=== PATIENT | female | born 1935 | race Caucasian/White ===

== ENCOUNTER 2016-09-19 00:12 | Emergency (ER) | payer OTHER, MEDICARE ==
[2016-09-19 01:03] LABS: ABSOLUTE BASOPHIL COUNT 0.1 /CUMM (0.0-0.2); ABSOLUTE EOSINOPHIL COUNT 0.2 /CUMM (0.0-0.7); ABSOLUTE GRANULOCYTE CT 6.7 /CUMM (1.4-6.5); ABSOLUTE MONOCYTE COUNT 0.8 /CUMM (0.10-0.60); BASOPHIL % 0.8 % (0.0-2.0); EOSINOPHIL % 1.6 % (0-5); GRANULOCYTE % 68.9 % (42.2-75.2); HEMATOCRIT 40.5 % (37-47); MEAN CORPUSCULAR HGB 30.4 PG (27.0-31.0); MEAN CORPUSCULAR HGB CONC 32.9 G/DL (33.0-37.0); MEAN CORPUSCULAR VOLUME 92.4 FL (81.0-99.0); PLATELET COUNT 209 /CUMM (130-400); RBC DISTRIBUTION WIDTH 14.4 % (11.5-14.5); RED BLOOD CELL CT 4.38 /CUMM (4.20-5.40); WHITE BLOOD CELL COUNT 9.8 /CUMM (4.8-10.8)
[2016-09-19 01:08] LABS: PT 13.7 SEC (9.4-12.5)
--- NOTE | 2016-09-19 01:45 | ED NEURO DEFICIT/STROKE ---
History of Present Illness General Chief Complaint: Neuro Symptoms/ Deficit Stated Complaint: BIBA L SIDE WEAKNESS Source: patient, old records, EMS Exam Limitations: no limitations Vital Signs & Intake/Output Vital Signs & Intake/Output Vital Signs Date Time Temp Pulse Resp B/P Pulse O2 O2 Flow FiO2 Ox Delivery Rate 09/19 0706 98.0 80 18 157/72 94 Room Air 09/19 0241 98.3 82 20 181/82 94 Room Air 09/19 0025 94 Room Air 09/19 0022 97.8 81 18 164/104 94 Room Air Reconcile Medications Atorvastatin Calcium 10 MG TABLET 1 TAB PO DAILY HIGH CHOLESTEROL (Reported) Mirtazapine 30 MG TABLET 1 TAB PO QPM (Reported) Quetiapine Fumarate 25 MG TABLET 1 TAB PO QPM (Reported) Venlafaxine HCl 75 MG TABLET 1 TAB PO BID (Reported) Core Measure Meds Pre-Hospital xarelto Triage Note: TRIAGE: PATIENT ERICK FROM HOME REPORTS SUDDEN ONSET L ARM/LEG WEAKNESS W/ L FACIAL DROOP AND SLURRED SPEECH X 20 MINUTES JUST [employer], WAS STANDING AND "ROLLED ONTO A BENCH WHEN IT HAPPENED." DENIES HEADSTRIKE/ INJURIES, IS TAKING XARELTO. PER EMS, PATIENT SYMPTOMS RESOLVED ENTIRELY WITNESSED BY EMS. NEUROS INTACT, SPEECH CLEAR. PATIENT DENIES HX OF SAME. PREHOSP IV EST #18 RIGHT HAND, DRESSING CHANGED. PLACED ON NUTRITIONAL SERVICES COOK, NSR. MD BAH TO BEDSIDE. Triage Nurses Notes Reviewed? yes Onset: Just prior to arrival Duration: minute(s):, better, gone now Timing: recent history Severity: moderate New Weakness: LUE, LLE, left facial Altered Sensations: LUE, LLE, left facial Vision Problem? No Glaucoma? No Impaired Ability: difficult to stand, weak Baseline: alert, oriented x 3 Associated Symptoms: trouble walking, weakness LMP (ages 10-50): post menopausal : No Patient currently breastfeeds: No HPI: Shortly prior to admission patient was unable to pin on her medals and noted left facial numbness left arm and leg weakness and fell onto the floor from a seated position striking the left side of her head. The symptoms lasted less than 20 minutes and resolved completely. She denies fever chills nausea vomiting diarrhea abdominal pain chest pain shortness of breath headache dysuria rash bleeding. Past History Travel History Traveled to [place] past 21 day No Medical History Any Pertinent Medical History? 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 No Review of Systems Review of Systems Constitutional: Reports: no symptoms. EENTM: Reports: no symptoms. Respiratory: Reports: no symptoms. Cardiovascular: Reports: no symptoms. GI: Reports: no symptoms. Genitourinary: Reports: no symptoms. Musculoskeletal: Reports: no symptoms. Skin: Reports: no symptoms. Neurological/Psychological: Reports: see HPI, numbness, unable to move lower ext, unable to move upper ext, weakness. Hematologic/Endocrine: Reports: no symptoms. Immunologic/Allergic: Reports: no symptoms. All Other Systems: Reviewed and Negative Physical Exam Physical Exam General Appearance: well developed/nourished, alert, awake, anxious, comfortable , obese Head: normal appearance, contusions (left frontal abrasion) Eyes: Bilateral: normal appearance, PERRL, EOMI. Ears, Nose, Throat: normal ENT inspection, moist mucous membrane Neck: normal inspection, supple, full range of motion, trachea midline Respiratory: normal breath sounds, chest non-tender, no respiratory distress, quiet respiration, lungs clear Cardiovascular: regular rate/rhythm, normal peripheral pulses, norml femoral pulses equa Peripheral Pulses: 4+ carotid (R), 4+ carotid (L) Gastrointestinal: normal bowel sounds, soft, non-tender, no organomegaly Back: normal inspection, normal range of motion Extremities: normal range of motion, no ligament instability Psychiatric: awake, alert, oriented x 3 Cranial Nerves: normal hearing, normal speech, PERRL Coordination/Gait: normal finger to nose, normal gait Motor/Sensory: no motor/sensory deficits Reflexes: 2+: bicep (R), bicep (L). Skin: intact, normal color, warm/dry Lymphatic: no anterior cervical luana Core Measures CVA/TIA Diagnosis: Yes Severe Sepsis Present: No Septic Shock Present: No Bedside Dysphagia Screen Bedside Swallow Eval Done: Yes Result of Evaluation: Pass Progress Differential Diagnosis: electrolyte imbalance, hypoglycemia, intracranial Hem., stroke Plan of Care: Orders Procedure Date/time Status Regular Diet 09/19 B Active URINALYSIS 09/19 143 Complete TROPONIN LEVEL 09/19 37 Complete PROTHROMBIN TIME 09/19 37 Complete COMPREHENSIVE METABOLIC PANEL 09/19 37 Complete CBC WITHOUT DIFFERENTIAL 09/19 37 Complete EKG 09/19 16 Active Laboratory Tests 09/19/16 0145: Urine Color STRAW, Urine Clarity CLEAR, Urine pH 6.0, Ur Specific [place] 1.025, Urine Protein NEG, Urine Ketones NEG, Urine Nitrite NEG, Urine Bilirubin NEG, Urine Urobilinogen 0.2, Ur Leukocyte Esterase SMALL H, Ur Microscopic SEDIMENT EXAMINED, Urine RBC 3-5, Urine WBC 15-25 H, Urine Hemoglobin TRACE-INTACT, Urine Glucose NEG 09/19/16 0056: Anion Gap 8, Estimated GFR 48 L, BUN/Creatinine Ratio 25.5 H, Glucose 116 H, Calcium 8.9, Total Bilirubin 0.9, AST 14, ALT 22, Alkaline Phosphatase 115, Troponin I < 0.01, Total Protein 6.0 L, Albumin 3.3 L, Globulin 2.7, Albumin/ Globulin Ratio 1.2, PT 13.7 H, INR 1.31 H, CBC w Diff NO MAN DIFF REQ, RBC 4.38, MCV 92.4, MCH 30.4, RDW 14.4, MPV 10.0, Gran % 68.9, Lymphocytes % 20.9, Monocytes % 7.8, Eosinophils % 1.6, Basophils % 0.8, Absolute Granulocytes 6.7 H, Absolute Lymphocytes 2.0, Absolute Monocytes 0.8 H, Absolute Eosinophils 0.2 , Absolute Basophils 0.1, PUBS MCHC 32.9 L Diagnostic Imaging: Viewed by Me: CT Scan. Discussed w/RAD: CT Scan. Radiology Impression: no acute abnormality Initial ED EKG: normal axis, normal intervals, normal p-waves, normal QRS complex, normal sinus rhythm, no ST T wave changes Prior EKG: unchanged Rhythm Strip: normal sinus rhythm Departure Departure Time of Disposition: 0700 Disposition: HOME OR SELF CARE Condition: Stable Clinical Impression Primary Impression: TIA (transient ischemic attack) Qualifiers: Transient cerebral ischemia type: unspecified Qualified Code: G45.9 - Transient cerebral ischemic attack, unspecified Referrals: RODRIGUE JOSEPH,VASHTI Dumont Call for neurology follow up Additional Instructions: Add aspirin 81 mg daily. Departure Forms: Customer Survey General Discharge Information
--- NOTE | 2016-09-19 01:50 | CT SCAN REPORT ---
EXAMINATION: CT HEAD WITHOUT CONTRAST CLINICAL INFORMATION: Left-sided weakness and facial droop. Fall. COMPARISON: None. TECHNIQUE: Contiguous axial imaging was performed from the skull base to vertex without intravenous contrast. DLP: 672 mGy-cm. FINDINGS: There is no evidence of acute intracranial hemorrhage or territorial infarction. No abnormal mass effect or midline shift is seen. Overton to white matter differentiation is well preserved. No extra-axial fluid collections are identified. No hydrocephalus. Proportional prominence of the ventricles and sulcal spaces is consistent with mild volume loss. Patchy periventricular and deep white matter hypoattenuation is consistent with mild small vessel ischemic changes. The osseous structures and soft tissues are normal. The mastoid air cells and visualized portions of the paranasal sinuses are well aerated. IMPRESSION: No acute intracranial pathology. Mild volume loss with small vessel ischemic changes.
[2016-09-19 07:06] VITALS: BP 157/72
[2016-09-19] MEDS ORDERED: ATORVASTATIN CA10 M1 PO (07:07)
[2016-09-19] MEDS ORDERED: QUETIAPINE FUMA25 M1 PO (07:07)
[2016-09-19] MEDS ORDERED: VENLAFAXINE HCL75 MG PO (07:07)
[2016-09-19] MEDS ORDERED: MIRTAZAPINE30 M2 PO (07:07)
== END 2016-09-19 07:10 ==
LOC: ERH 00:12
PROVIDERS: Emergency Medicine
DX: G45.9 Transient cerebral ischemic attack, unspecified (principal); R20.0 Anesthesia of skin; I48.91 Unspecified atrial fibrillation; J45.909 Unspecified asthma, uncomplicated
CPT/HCPCS: 81001; 93005; 93010